=== PATIENT | female | born 1960 | race Caucasian/White ===

== ENCOUNTER → 2016-12-20 | Day surgery (SDC) | payer OTHER ==
[~2016-12-20] MED LIST: ALBU6.7H INH; ASPI81 PO; ATEN1TAB73 PO; BUPR-175 OR; CHOL400D2 PO; DIPH2%T PO; DIPH25CA PO; DYAZ37.52 PO; FOLI1TAB PO; HYDR45CR EX; LACTATED RINGER'S 1000 ML INJ 1,000 ML ONE; LOSA100T2 PO; LOSA25TA31 PO; LOSA50TA PO; MAGN500T2 PO; POTA-243 PO; PRED20 PO; PROPOFOL 100 MG/10 ML INJ IV ONE; RANI300T PO; VITA400C28 PO; ZOVI800T13 PO
--- NOTE | 2016-12-20 11:42 | GIPROC ---
[facility] [address] [facility], [address] EGD PROCEDURE REPORT EXAM DATE: 12/20/2016 PATIENT NAME: Fay Tate MR #: [id number] BIRTHDATE: 1960 ATTENDING: J Carlos Restrepo MD ORDER #: [id number] SEROLOGIST: STATUS: outpatient INDICATIONS: The patient is a 56 yr old female here for an EGD due to history of esophageal reflux PROCEDURE PERFORMED: EGD w/ biopsy MEDICATIONS: None and Per Anesthesia. TOPICAL ANESTHETIC: CONSENT: The patient understands the risks and benefits of the procedure and understands that these risks include, but are not limited to: sedation, allergic reaction, infection, perforation and/or bleeding. Alternative means of evaluation and treatment include, among others: physical exam, x-rays, and/or surgical intervention. The patient elects to proceed with this endoscopic procedure. medical equipment was checked for proper function. Hand hygiene and appropriate measures for infection prevention was taken. After the risks, benefits and alternatives of the procedure were thoroughly explained, Informed consent was verified, confirmed and timeout was successfully executed by the treatment team. The patient was anesthetized with topical anesthesia and the EG-[id number] ([id number]) endoscope was introduced through the mouth and advanced to the second portion of the duodenum. Retroflexed views revealed no abnormalities The gastroscope was then slowly withdrawn and removed. STOMACH: There was mild gastritis in the gastric antrum. Multiple biopsies were performed. The endoscopy was otherwise normal. ADVERSE EVENTS: There were no complications. IMPRESSIONS: 1. There was mild gastritis in the gastric antrum; multiple biopsies were performed 2. Normal endoscopy otherwise 3. Retroflexed views revealed no abnormalities RECOMMENDATIONS: 1. Await biopsy results. Biopsy results will not be ready for 7-10 days. If you don't hear from us in two weeks, call our office for biopsy results. 2. Anti-reflux regimen 3. Follow-up: GI clinic PRN PATIENT CONDITION: stable DISPOSITION: Home REPEAT EXAM: J Carlos Restrepo MD eSigned: J Carlos Rsetrepo MD 12/20/2016 11:41 AM cc: Braxton Carter, [facility]
== END | disposition home or self-care (01) ==
LOC: ESDC 10:41
PROVIDERS: ATTEND Internal Medicine Gastroenterology
DX: K21.9 Gastro-esophageal reflux disease without esophagitis (principal); K29.70 Gastritis, unspecified, without bleeding
CPT/HCPCS: 00740; 43239; 88305; 88312; J3010; J7120

== ENCOUNTER 2017-01-13 10:48 | Inpatient (IN) | payer OTHER ==
[~2017-01-13] VITALS: Ht 160 cm; Wt 111.8 kg
[2017-03-01] MEDS ORDERED: LOSA100T2 PO (11:14)
[2017-03-01] MEDS ORDERED: ALBU6.7H INH (11:14)
[2017-03-01] MEDS ORDERED: CHOL400D2 PO (11:14)
[2017-03-01] MEDS ORDERED: DIPH25CA PO (11:14)
[2017-03-01] MEDS ORDERED: MAGN500T2 PO (11:14)
[2017-03-02] MEDS ORDERED: APREPITANT 40 MG CAP PO SCH (06:00)
[2017-03-02] MEDS ORDERED: ONDANSETRON HCL 4 MG/2 ML VIAL IV PUSH SCH (06:00)
[2017-03-02] MEDS ORDERED: CHLORHEXIDINE GLUCONATE 2 % 1 PACK (2 CLOTHS) TOPICAL PRN (06:00)
[2017-03-02] MEDS ORDERED: INSULIN HUMAN REGULAR 1,000 UNITS/10 ML VIAL SQ PRN (06:00)
[2017-03-02] MEDS ORDERED: LACTATED RINGER'S 1000 ML IV PRN (06:00)
[2017-03-02] MEDS ORDERED: METOPROLOL TARTRATE 25 MG TAB PO PRN (06:00)
[2017-03-02] MEDS ORDERED: ceFAZolin 2 GM PREMIX 50 ML IV SCH (06:00)
[2017-03-02] MEDS ORDERED: POVIDONE IODINE 5% (ANTISEPSIS KIT) 4 APPLICATIONS EACH NARE PRN (06:00)
[2017-03-02] MEDS ORDERED: ACETAMINOPHEN 1000 MG/100 ML VIAL IV SCH (06:00)
[2017-03-02] MEDS ORDERED: SODIUM CHLORID 0.9% 500 ML IV PRN (06:00)
[2017-03-02] MEDS ORDERED: SCOPOLAMINE 1.5 MG PATCH T-DERMAL SCH (06:00)
[2017-03-02] MEDS ORDERED: metroNIDAZOLE 500 MG INJ 100 ML IV SCH (06:30)
[2017-03-02 06:38] VITALS: BP 135/76; PULSE 75; RESP 18; TEMP 98.5; O2SAT 97
[2017-03-02] MEDS ORDERED: BUPIVACAINE HCL PF 0.5% 30 ML VIAL ONE (07:23)
[2017-03-02] MEDS ORDERED: BUPIVACAINE/EPINEPHRINE 0.5% PF 30 ML VIAL INFIL ONE (08:22)
[2017-03-02] MEDS ORDERED: METHYLENE BLUE 100 MG/10 ML VIAL NG ONE (08:46)
[2017-03-02] MEDS ORDERED: SUGAMMADEX SODIUM 200 MG/2 ML VIAL IV PUSH ONE ×2 (08:59)
[2017-03-02] MEDS ORDERED: ENALAPRILAT 1.25 MG/ML VIAL IV PUSH PRN (09:15)
[2017-03-02] MEDS ORDERED: ACETAMINOPHEN 325MG/HYDROcodone 7.5MG/15ML UDC PO PRN (09:15)
[2017-03-02] MEDS ORDERED: HYDROmorphone HCL PF 1 MG/ML VIAL IV PUSH PRN (09:15)
[2017-03-02] MEDS ORDERED: DEXTROSE 50% IN WATER 50 ML VIAL(D50) IV PUSH PRN (09:15)
[2017-03-02] MEDS ORDERED: SODIUM CHLORIDE 0.9% FLUSH 10 ML FLUSH PRN (09:15)
[2017-03-02] MEDS ORDERED: GLUCAGON 1 MG/ML VIAL OTHER PRN (09:15)
[2017-03-02] MEDS ORDERED: diphenhydrAMINE HCL 50 MG/ML VIAL IV PRN (09:15)
[2017-03-02] MEDS ORDERED: diphenhydrAMINE HCL ELIXIR 12.5 MG/5 ML CUP PO PRN (09:15)
[2017-03-02] MEDS ORDERED: Post-op Orders (for Pharmacy) MISC OTHER ONE (09:30)
[2017-03-02] MEDS ORDERED: fentaNYL CITRATE 250 MCG/5 ML AMP ONE (09:51)
[2017-03-02] MEDS ORDERED: MIDAZOLAM HCL 2 MG/2 ML VIAL ONE (09:51)
[2017-03-02] MEDS ORDERED: *morphine SULFATE 8 MG/ML PERIprocedure ONLY ONE ×3 (09:57→10:36)
[2017-03-02] MEDS: 1/2 NS + KCL 20 MEQ INJ 1,000 ML IV SCH ×2 (10:00→17:59)
[2017-03-02] MEDS ORDERED: DO NOT ADM ANY ANTICOAGULANT DRUGS PRN (10:15)
[2017-03-02] MEDS: METOCLOPRAMIDE HCL 10 MG/2 ML VIAL IV PUSH SCH ×3 (10:41→23:00)
[2017-03-02] MEDS: INSULIN NovoLIN REGULAR SUPPLEMENTAL SCALE SQ SCH ×3 (11:00→21:00)
[2017-03-02] MEDS: RESP: ALBUTEROL 2.5 MG/3 ML NEB (SCH) INH ×3 (11:58→19:51)
[2017-03-02 13:31] VITALS: BP 96/53; PULSE 66; RESP 17; TEMP 95.4; O2SAT 96
[2017-03-02] MEDS ORDERED: PROPOFOL 200 MG/20 ML AMP IV ONE (14:11)
[2017-03-02] MEDS ORDERED: PHENYLEPH/NS 1000 MCG/10 ML SYR IV ONE (14:12)
[2017-03-02] MEDS ORDERED: LACTATED RINGER'S 1000 ML INJ 1,000 ML IV ONE (14:12)
[2017-03-02] MEDS ORDERED: ONDANSETRON HCL 4 MG/2 ML VIAL IV PUSH ONE (14:12)
[2017-03-02] MEDS ORDERED: ePHEDrine/NS 25 MG/5 ML SYR IV ONE (14:12)
[2017-03-02] MEDS ORDERED: KETOROLAC TROMETHAMINE 60 MG/2 ML (IM) VIAL IM ONE (14:12)
[2017-03-02] MEDS ORDERED: PANTOPRAZOLE SOD 40 MG DELAYED RELEASE TAB PO ONE (15:15)
[2017-03-02] MEDS: ENOXAPARIN SODIUM 40 MG/0.4 ML SYRINGE SQ SCH (15:55)
[2017-03-02] MEDS: metroNIDAZOLE 500 MG INJ 100 ML IV SCH ×2 (15:55→22:00)
[2017-03-02 16:00] VITALS: BP 101/57; PULSE 68; RESP 19; TEMP 95.5; O2SAT 96
[2017-03-02 16:15] VITALS: O2SAT 97
[2017-03-02] MEDS: ONDANSETRON HCL 4 MG/2 ML VIAL IV PRN (17:59)
[2017-03-02 20:27] VITALS: BP 119/56; PULSE 70; RESP 18; TEMP 96.4; O2SAT 95
[2017-03-02] MEDS: SODIUM CHLORIDE 0.9% FLUSH 10 ML FLUSH IV FLUSH SCH (21:00)
[2017-03-03] VITALS (9 sets, daily range): BP systolic 99–145; BP diastolic 52–63; PULSE 68–83; RESP 16–18; TEMP 97.6–99.8; O2SAT 93–97
[2017-03-03] MEDS: RESP: ALBUTEROL 2.5 MG/3 ML NEB (SCH) INH ×6 (00:08→19:42)
[2017-03-03] MEDS: 1/2 NS + KCL 20 MEQ INJ 1,000 ML IV SCH ×3 (01:46→18:03)
[2017-03-03] MEDS: METOCLOPRAMIDE HCL 10 MG/2 ML VIAL IV PUSH SCH ×2 (01:51→05:00)
[2017-03-03] MEDS: metroNIDAZOLE 500 MG INJ 100 ML IV SCH (05:07)
[2017-03-03] MEDS: INSULIN NovoLIN REGULAR SUPPLEMENTAL SCALE SQ SCH ×4 (06:15→19:51)
[2017-03-03 06:30] LABS: AUTOMATED NEUTROPHIL # 12.9 TH/MM3 (1.8-7.7); BASOPHIL % 0.3 % (0.0-2.0); EOSINOPHIL # 0.1 TH/MM3 (0-0.4); EOSINOPHIL % 0.8 % (0.0-4.0); HEMO FLAGS DIFF FINAL; LYMPHOCYTE # 1.9 TH/MM3 (1.0-4.8); MEAN CELL VOLUME 87.2 FL (80.0-100.0); MEAN CORPUSCULAR HEMOGLOBIN 30.2 PG (27.0-34.0); MEAN CORPUSCULAR HGB CONC 34.6 % (32.0-36.0); MONO % 4.6 % (0.0-8.0); NEUT % 82.3 % (16.0-70.0); PLATELET COUNT 327 TH/MM3 (150-450); RED BLOOD COUNT 4.36 MIL/MM3 (4.00-5.30); WHITE BLOOD COUNT 15.7 TH/MM3 (4.0-11.0)
[2017-03-03 07:17] LABS: BICARBONATE 30.4 MEQ/L (21.0-32.0); MAGNESIUM 2.2 MG/DL (1.5-2.5)
[2017-03-03 07:26] LABS: POTASSIUM 3.5 MEQ/L (3.5-5.1)
[2017-03-03] MEDS: PANTOPRAZOLE SOD 40 MG DELAYED RELEASE TAB PO SCH (08:13)
[2017-03-03] MEDS: SODIUM CHLORIDE 0.9% FLUSH 10 ML FLUSH IV FLUSH SCH ×2 (08:14→19:01)
[2017-03-03] MEDS: ONDANSETRON HCL 4 MG/2 ML VIAL IV PRN ×2 (10:55→18:03)
[2017-03-03] MEDS ORDERED: METOCLOPRAMIDE HCL 10 MG/2 ML VIAL IV PUSH PRN (11:00)
--- NOTE | 2017-03-03 12:12 | HHI.PR ---
Subjective Subjective Notes 56yo female POD#1 Sitting up in chair. Complains of some nausea relieved with medication. Not tolerating 60ml of PO fluids. Complains of intermittent midsternal chest pain not related to PO intake. She rates the pain 8/10 but states it is getting better Objective Vitals/I&O Vital Signs Date Time Temp Pulse Resp B/P Pulse Ox O2 Delivery O2 Flow Rate FiO2 03/03/17 08:50 96 21 03/03/17 08:00 98.5 80 17 111/59 03/03/17 00:11 Nasal Cannula 03/02/17 13:00 3 Labs Laboratory Tests Test 03/03/17 05:46 White Blood Count 15.7 Red Blood Count 4.36 Hemoglobin 13.2 Hematocrit 38.0 Mean Corpuscular Volume 87.2 Mean Corpuscular Hemoglobin 30.2 Mean Corpuscular Hemoglobin 34.6 Concent Red Cell Distribution Width 15.0 Platelet Count 327 Mean Platelet Volume 7.4 Neutrophils (%) (Auto) 82.3 Lymphocytes (%) (Auto) 12.0 Monocytes (%) (Auto) 4.6 Eosinophils (%) (Auto) 0.8 Basophils (%) (Auto) 0.3 Neutrophils # (Auto) 12.9 Lymphocytes # (Auto) 1.9 Monocytes # (Auto) 0.7 Eosinophils # (Auto) 0.1 Basophils # (Auto) 0.0 CBC Comment DIFF FINAL Differential Comment Sodium Level 137 Potassium Level 3.5 Chloride Level 101 Carbon Dioxide Level 30.4 Anion Gap 6 Blood Urea Nitrogen 12 Creatinine 0.95 Estimat Glomerular Filtration 60 Rate Random Glucose 113 Calcium Level 8.1 Magnesium Level 2.2 Cardiovascular: Regular Lungs: Clear Abdomen: Post-op tenderness Extremities: Perfused Wound Wound : Wound Location: Abdomen Appearance: Clean & Dry A/P Assessment and Plan EKG for chest pain though most likely related to gas Continue with frequent ambulation Continue to increase PO fluids as tolerated Discharge Planning D/C home probably tomorrow Rashaad Caldwell Mar 03, 2017 12:12
--- NOTE | 2017-03-03 13:44 | EKG ---
Date Performed: 03/03/2017 Time Performed: 13:13:43 PTAGE: 56 years EKG: Sinus rhythm LOW QRS VOLTAGE IN PRECORDIAL LEADS BORDERLINE ECG NO SIGNIFICANT CHANGE FROM PRIOR ELECTROCARDIOGRA M. PREVIOUS TRACING : 12/15/2009 11.10 DOCTOR: Bro Hobson Interpretating Date/Time 03/03/2017 13:43:11
[2017-03-03] MEDS: ENOXAPARIN SODIUM 40 MG/0.4 ML SYRINGE SQ SCH (14:20)
[2017-03-03] MEDS ORDERED: BENZOCAINE 6 MG/MENTHOL 10 MG LOZENGE BUCCAL ONE (18:00)
[2017-03-03] MEDS: ACETAMINOPHEN 325MG/HYDROcodone 7.5MG/15ML UDC PO PRN (20:40)
[2017-03-04 00:25] VITALS: BP 131/63; PULSE 74; RESP 18; TEMP 98.3; O2SAT 94
[2017-03-04] MEDS: 1/2 NS + KCL 20 MEQ INJ 1,000 ML IV SCH ×2 (01:05→08:54)
[2017-03-04] MEDS: RESP: ALBUTEROL 2.5 MG/3 ML NEB (SCH) INH ×3 (04:00→07:28)
[2017-03-04] MEDS: ACETAMINOPHEN 325MG/HYDROcodone 7.5MG/15ML UDC PO PRN (05:37)
[2017-03-04] MEDS: INSULIN NovoLIN REGULAR SUPPLEMENTAL SCALE SQ SCH ×2 (05:50→11:00)
[2017-03-04 07:32] VITALS: O2SAT 96
[2017-03-04] MEDS: HYOSCYAMINE SOLN 0.125 MG/ML 15 ML BTL PO SCH ×2 (08:00→12:40)
[2017-03-04] MEDS: PANTOPRAZOLE SOD 40 MG DELAYED RELEASE TAB PO SCH (08:45)
[2017-03-04] MEDS: SODIUM CHLORIDE 0.9% FLUSH 10 ML FLUSH IV FLUSH SCH (08:46)
--- NOTE | 2017-03-04 12:13 | HHI.PR ---
Subjective Subjective Notes POD#2 VSG. Sitting up in chair. Tolerating PO fluids. Passing flatus. Chest pain much improved Objective Vitals/I&O Vital Signs Date Time Temp Pulse Resp B/P Pulse Ox O2 Delivery O2 Flow Rate FiO2 03/04/17 07:32 96 03/04/17 00:25 98.3 74 18 131/63 03/03/17 19:25 21 03/03/17 00:11 Nasal Cannula 03/02/17 13:00 3 Cardiovascular: Regular Lungs: Clear Abdomen: Post-op tenderness Extremities: Perfused Wound Wound : Wound Location: Abdomen Appearance: Clean & Dry A/P Assessment and Plan Continue with frequent ambulation Continue to increase PO fluids as tolerated Discharge Planning D/C home today Rashaad Caldwell Mar 04, 2017 12:13
[2017-03-04] MEDS ORDERED: LOSA50TA PO (12:16)
--- NOTE | 2017-03-15 12:48 | MP ---
cc: SHELBY SIDDIQUI DATE OF 1960 DATE OF OPERATION 03/02/2017 PREOPERATIVE DIAGNOSES Morbid obesity with a BMI of 44, complicated by obstructive sleep apnea, type 2 diabetes. POSTOPERATIVE DIAGNOSES Morbid obesity with a BMI of 44, complicated by obstructive sleep apnea, type 2 diabetes. PROCEDURE Laparoscopic vertical sleeve gastrectomy over a 36-[place] ViSiGi bougie. SURGEON Shelby Siddiqui MD ASSESSMENT Donn Green DO ANESTHESIA General endotracheal anesthesia. ESTIMATED BLOOD LOSS Scant. FINDINGS Fatty liver. SPECIMEN None. COMPLICATIONS None. PROCEDURE The patient was brought to the operating room and placed on the operating table in supine position, bilateral sequential inflation device placed on lower extremities. General anesthesia was instituted. Antibiotics was initiated. The abdomen was prepped and draped sterilely. A point 15 cm distal to the xiphoid in the midline was anesthetized with 0.25% Marcaine with epinephrine. A skin incision was made, 5-mm OptiView port placed under direct vision and pneumoperitoneum created. Under direct vision, three 5-mm left upper quadrant, a 15-mm right upper quadrant, 5-mm right upper quadrant ports placed. Prior to placement of all ports the skin and peritoneum were anesthetized with 0.25% Marcaine with epinephrine. The patient was placed in reverse Trendelenburg position left side up, the Awa-Flex retractor was placed. The left lobe of the liver was retracted. The vasculature along the greater curvature of the stomach was using harmonic scalpel starting a distance 5-cm proximal to the pylorus and carried towards the angle of His. The angle of His was taken down bluntly. Posterior ligamentous attachments were sharply . A 36-[place] ViSiGi bougie was placed at the start of the case, was placed on suction. Division of the stomach started 5 cm proximal to the pylorus and carried towards the angle of His to completely excise approximately 80% of the stomach. This was performed using an [place] Flex stapler at the pylorus. The first firing was with a black load, followed by a green load and four gold loads. All staple loads were reinforced with SeamGuard. A distance of 2 cm was left from the angle incisura and the staple line and a distance of 1 cm left from the GE junction and the staple line. The pylorus was then occluded, methylene blue tinged saline was instilled. There was no evidence of extravasation. The gastrocolic ligament was then sutured to the posterior leaflet of the SeamGuard using a 2-0 Vicryl suture in a running manner. Bleeding points were controlled with Evicel. The excised stomach was removed from the peritoneal cavity through the 15-mm port site in an Endopouch. The fascia at the 15-mm port site was approximated with 0 Vicryl suture. The CO2 was then released, all ports were removed, all skin incisions closed with 4-0 Monocryl. The abdominal wall was cleaned. A sterile dressing was placed. The patient was awakened and taken to the recovery room. MD SHAWN Martinez/SSB /11:55 AM /12:48 PM
== END 2017-03-04 13:20 | disposition home or self-care (01) | DRG 621 ==
LOC: HSDI 03-02 05:28 → N07A 03-02 13:13
PROVIDERS: ADMIT Surgery; ATTEND Surgery
PROC: 0DB64Z3 Excision of Stomach, Percutaneous Endoscopic Approach, Vertical (ICD-10-PCS; principal; 2017-03-02 07:52)
DX: E66.01 Morbid (severe) obesity due to excess calories (principal); E11.22 Type 2 diabetes mellitus with diabetic chronic kidney disease; I12.9 Hypertensive chronic kidney disease with stage 1 through stage 4 chronic kidney disease, or unspecified chronic kidney disease; N18.1 Chronic kidney disease, stage 1; R07.9 Chest pain, unspecified; F41.9 Anxiety disorder, unspecified; G47.00 Insomnia, unspecified; Z68.41 Body mass index [BMI] 40.0-44.9, adult; Z87.891 Personal history of nicotine dependence; G47.33 Obstructive sleep apnea (adult) (pediatric)
CPT/HCPCS: 80048; 82948; 83735; 85025; 88307; 93005; 94150; 94640; 94664; J0131; J0690; J1650; J1885; J2250; J2270; J2370; J2405; J2765; J3010; J7120; J7613; J8501